=== PATIENT | female | born 1995 | race Caucasian/White ===

== ENCOUNTER 2017-08-12 10:12 | Emergency (ER) | payer SELFPAY ==
[2017-08-12] MEDS ORDERED: Sodium Chloride 0.9% 1,000 ML IV ONE (10:27)
--- NOTE | 2017-08-12 10:30 | EDM.PDOC ---
ED HPI GENERAL MEDICAL PROBLEM - General Chief Complaint: Genitourinary Problem Stated Complaint: BLOODY URINE 11 WKS Time Seen by Provider: 08/12/17 10:18 Source of Information: Reports: Patient History Limitations: Reports: No Limitations - History of Present Illness INITIAL COMMENTS - FREE TEXT/NARRATIVE: HISTORY AND PHYSICAL: History of present illness: Patient is a 22-year-old female who presents to the emergency room with complaints of headache, blurred vision, bilateral flank pain and hematuria. She states that she is concerned she may have a kidney infection or kidney stone. States she took Tylenol last night and again this morning for her headache which she reports helped "somewhat". She does occasionally get headaches but has no history of migraines. She is currently 11 weeks with last menstrual period being May. She denies any abdominal cramping, vaginal bleeding or discharge. Denies any fever, chills, abdominal pain, n/v/d, chest pain, or SOB. , P: 0. She has a primary [employer] in [facility], which she sees routinely. She has had lab work and a confirmed IUP via ultrasound. Review of systems: As per history of present illness and below otherwise all systems reviewed and negative. Past medical history: As per history of present illness and as reviewed below otherwise noncontributory. Surgical history: As per history of present illness and as reviewed below otherwise noncontributory. Social history: No reported history of drug or alcohol abuse. Family history: As per history of present illness and as reviewed below otherwise noncontributory. Physical exam: General: Well-developed and well-nourished 22-year-old female. Alert and oriented. Nontoxic appearing and in no acute distress. HEENT: Atraumatic, normocephalic, pupils reactive, negative for conjunctival pallor or scleral icterus, mucous membranes moist, throat clear, neck supple, nontender, trachea midline. Lungs: Clear to auscultation, breath sounds equal bilaterally, chest nontender. Heart: S1S2, regular rate and rhythm without murmur Abdomen: Soft, nondistended, nontender. Negative for masses or hepatosplenomegaly. Mild bilateral costovertebral tenderness. Pelvis: Stable nontender. Genitourinary: Deferred. Rectal: Deferred. Extremities: Atraumatic, moves all extremities per self, negative for cords or calf pain. Neurovascular unremarkable. Neuro: Awake, alert, oriented. Cranial nerves II through XII unremarkable. Cerebellum unremarkable. Motor and sensory unremarkable throughout. Exam nonfocal. Patient is concerned that she may have kidney stones as she reports her mother has had kidney stones in the past. She is agreeable to doing routine lab work at this time. She does not have any concerns such as cramping, bleeding or discharge. CBC, CMP are normal. Urinalysis does show a UTI. I will add a urine culture onto this. Prescription for Macrobid 100 mg twice a day 10 days. we discussed increasing her oral fluids. Using Tylenol as needed for her headache and flank discomfort. She does have a close relationship with her primary care/[employer] which she has routine follow-up with. Encouraged her to return to the ER if symptoms worsen. Diagnostics: CBC, CMP, UA Therapeutics: IV fluid Impression: #1 First trimester #2 UTI #3 Headache Plan: 1. Please take the antibiotic as directed. A urine culture has been added to make sure the antibiotic you've been placed on is appropriate. 2. Increase your oral fluids. May use Tylenol as needed for pain management. Gentle heat for comfort. 3. Please follow closely with your [employer] (inform them of your visit here today) . Return to the ED as needed and as discussed. Definitive disposition and diagnosis as appropriate pending reevaluation and review of above. Duration: Day(s): Location: Reports: Back Quality: Reports: Ache mid back Pain Score (Numeric/FACES): 5 - Related Data Allergies Allergy/AdvReac Type Severity Reaction Status Date / Time Penicillins Allergy Hives Verified 08/12/17 10:22 Home Meds: Home Meds . [No Known Home Meds] 08/12/17 [History] Past Medical History - Past Health History Medical/Surgical History: Denies Medical/Surgical History - Infectious Disease History Infectious Disease History: Reports: Chicken Pox Social & Family History - Family History Family Medical History: Noncontributory - Tobacco Use Smoking Status *Q: Never Smoker - Caffeine Use Caffeine Use: Reports: None - Recreational Drug Use Recreational Drug Use: No ED ROS GENERAL - Review of Systems Review Of Systems: ROS reveals no pertinent complaints other than HPI. ED EXAM, RENAL/ - Physical Exam Exam: See Below (See dictation) Course - Vital Signs Last Recorded V/S: Last Vital Signs Temp 97.6 F 08/12/17 10:22 Pulse 94 08/12/17 10:22 Resp 18 08/12/17 10:22 BP 130/77 08/12/17 10:22 Pulse Ox 99 08/12/17 10:22 - Orders/Labs/Meds Orders: Active Orders 24 hr Category Date Time Status CULTURE URINE [RM] Stat Lab 08/12/17 10:26 Received Sodium Chloride 0.9% [Normal Saline] 1,000 ml Med 08/12/17 10:27 Active IV STAT Medication Orders Sodium Chloride (Normal Saline) 1,000 mls @ 999 mls/hr IV STAT ONE Stop: 08/12/17 11:27 Last Admin: 08/12/17 10:40 Dose: 999 mls/hr Labs: Laboratory Tests 08/12/17 08/12/17 08/12/17 Range/Units 10:26 10:45 10:45 WBC 9.98 (4.0-11.0) K/uL RBC 4.71 (4.30-5.90) M/uL Hgb 13.9 (12.0-16.0) g/dL Hct 41.4 (36.0-46.0) % MCV 87.9 (80.0-98.0) fL MCH 29.5 (27.0-32.0) pg MCHC 33.6 (31.0-37.0) g/dL RDW Std Deviation 42.9 (28.0-62.0) fl RDW Coeff of Adiel 13 (11.0-15.0) % Plt Count 249 (150-400) K/uL MPV 9.60 (7.40-12.00) fL Nucleated RBC % 0.0 /100WBC Nucleated RBCs # 0 K/uL Sodium 134 L (136-146) mmol/L Potassium 3.6 (3.5-5.1) mmol/L Chloride 104 (98-110) mmol/L Carbon Dioxide 21 (21-31) mmol/L BUN 9 (6.0-23.0) mg/dL Creatinine 0.7 (0.6-1.5) mg/dL Est Cr Clr Drug Dosing 118.01 mL/min Estimated GFR (MDRD) > 60.0 ml/min Glucose 78 (60-110) mg/dL Calcium 9.6 (8.8-10.8) mg/dL Total Bilirubin 0.4 (0.1-1.5) mg/dL AST 14 (5-40) IU/L ALT 10 (8-54) IU/L Alkaline Phosphatase 35 L (40-150) Total Protein 7.6 (6.0-8.0) g/dL Albumin 4.4 (3.5-5.0) g/dL Globulin 3.2 (2.0-3.5) g/dL Albumin/Globulin Ratio 1.4 (1.3-2.8) Urine Color YELLOW Urine Appearance CLOUDY Urine pH 6.0 (5.0-8.0) Ur Specific [place] 1.015 (1.001-1.035) Urine Protein TRACE (NEGATIVE) mg/dL Urine Glucose (UA) NEGATIVE (NEGATIVE) mg/dL Urine Ketones 15 H (NEGATIVE) mg/dL Urine Occult Blood LARGE H (NEGATIVE) Urine Nitrite NEGATIVE (NEGATIVE) Urine Bilirubin NEGATIVE (NEGATIVE) Urine Urobilinogen 1.0 (<2.0) EU/dL Ur Leukocyte Esterase LARGE (NEGATIVE) Urine RBC 25-30 (0-2/HPF) Urine WBC TO NUMEROUS TO COUNT H (0-5/HPF) Ur Epithelial Cells FEW (NONE-FEW) Urine Bacteria FEW (NEGATIVE) Meds: Medications Generic Name Dose Route Start Last Admin Trade Name Freq PRN Reason Stop Dose Admin Sodium Chloride 1,000 mls @ 999 mls/hr 08/12/17 10:27 08/12/17 10:40 Normal Saline IV 08/12/17 11:27 999 mls/hr STAT ONE Administration Departure - Departure Time of Disposition: 11:27 Disposition: Home, Self-Care 01 Clinical Impression: UTI, Urinary tract infectious disease, First trimester - Discharge Information Referrals: PCP,None [Primary Care Provider] - Forms: ED Department Discharge Additional Instructions: My general discharge The following information is given to patients seen in the emergency department who are being discharged to home. This information is to outline your options for follow-up care. We provide all patients seen in our emergency department with a follow-up referral. The need for follow-up, as well as the timing and circumstances, are variable depending upon the specifics of your emergency department visit. If you don't have a primary care physician on staff, we will provide you with a referral. We always advise you to contact your personal physician following an emergency department visit to inform them of the circumstance of the visit and for follow-up with them and/or the need for any referrals to a consulting specialist. The emergency department will also refer you to a specialist when appropriate. This referral assures that you have the opportunity for follow-up care with a specialist. All of these measure are taken in an effort to provide you with optimal care, which includes your follow-up. Under all circumstances we always encourage you to contact your private physician who remains a resource for coordinating your care. When calling for follow-up care, please make the office aware that this follow-up is from your recent emergency room visit. If for any reason you are refused follow-up, please contact the [facility] Emergency Department at and asked to speak to the emergency department charge nurse. [address] [address] 1. Please take the antibiotic as directed. A urine culture has been added to make sure the antibiotic you've been placed on is appropriate. 2. Increase your oral fluids. May use Tylenol as needed for pain management. Gentle heat for comfort. 3. Please follow closely with your [employer] (inform them of your visit here today) . Return to the ED as needed and as discussed. - My Orders Last 24 Hours: My Active Orders 08/12/17 10:26 CULTURE URINE [RM] Stat 08/12/17 10:27 Sodium Chloride 0.9% [Normal Saline] 1,000 ml IV STAT - Assessment/Plan Last 24 Hours: My Active Orders 08/12/17 10:26 CULTURE URINE [RM] Stat 08/12/17 10:27 Sodium Chloride 0.9% [Normal Saline] 1,000 ml IV STAT
[2017-08-12 11:08] LABS: CHLORIDE,CL 104 mmol/L (98-110); SODIUM,NA 134 mmol/L (136-146)
== END 2017-08-12 11:55 | disposition home or self-care (01) ==
LOC: MW.ED 10:12
DX: O23.41 Unspecified infection of urinary tract in pregnancy, first trimester (principal); R51 Headache; Z88.0 Allergy status to penicillin; Z3A.11 11 weeks gestation of pregnancy
CPT/HCPCS: 36415; 80053; 81001; 85027; 87086; 96360; 99283; J7040

== ENCOUNTER 2019-12-08 10:03 | Day surgery (SDC) | payer BC ==
[2019-12-08] MEDS ORDERED: Bupivacaine 0.5% 10 ML SDV ONE (11:19)
[2019-12-08] MEDS ORDERED: Lidocaine 1% 20 ML MDV ONE (11:20)
--- NOTE | 2019-12-08 13:14 | PCM.OPNOTE ---
- General Post-Op/Procedure Note Date of Surgery/Procedure: 12/08/19 Operative Procedure(s): Excision left scalp lesion Findings: 1 cm in diameter raised irregular appearing nevus. Margins 1cm x 8mm x 5mm Pre Op Diagnosis: Changing skin lesion on left scalp Post-Op Diagnosis: same Anesthesia Technique: Local Primary Surgeon: Bethanie BAXTER in mLs: 2 Condition: Good
--- NOTE | 2019-12-08 16:34 | OR ---
SURGEON: BETHANIE TAYLOR MD DATE OF PROCEDURE: 12/08/2019 PREOPERATIVE DIAGNOSIS: Left scalp lesion. POSTOPERATIVE DIAGNOSIS: Left scalp lesion. PROCEDURE PERFORMED: Excision of left scalp lesion. PRIMARY SURGEON: Bethanie Taylor MD ANESTHESIA: Local. FLUIDS: None. ESTIMATED BLOOD LOSS: 2 mL. FINDINGS: 1 cm raised irregular appearing nevus. Margins 1 cm x 8 mm x 5 mm. COMPLICATIONS: None. INDICATIONS: The patient is a 24-year-old female who presents with a changing skin lesion along her left scalp line. The decision was made to proceed with excision in the operating room to control bleeding given the lesion's size and location. I explained the procedure, expected perioperative course, and risks. The patient verbalized understanding and wishes to proceed. PROCEDURE IN DETAIL: The patient was brought into the OR and placed on the OR cart in a right lateral decubitus position. A time-out was completed verifying the patient's name, age, date of , allergies, and procedure to be performed. The left scalp line just behind the ear was prepped and draped in usual sterile fashion. I first measured the skin lesion. It measured 1 cm in diameter and was raised approximately 5 mm. I anesthetized the area underneath the skin lesion with 3 mL of 1% lidocaine plain. An elliptical skin incision was made using a 15 blade around the skin lesion and along the skin lines. Cautery was then used to dissect down to the level of subcutaneous fat. I undermined the skin lesion, and once it was from the surrounding tissues, it was placed on the back table. The lesion and the skin that were taken with it measured 1 cm x 8 mm x 5 mm in size. Hemostasis was achieved in the wound using electrocautery. An interrupted 3-0 Vicryl suture was placed along the subcutaneous fat layer to provide a tension-free closure. Interrupted 3-0 Ethilon sutures were used to close the approximately 2 cm incision. Sterile dressings were applied. The patient tolerated the procedure well and was taken back to the preoperative area in stable condition. MELISSA LOPES /[id number]
== END 2019-12-08 13:30 | disposition home or self-care (01) ==
LOC: MW.SDS 10:03
PROVIDERS: ATTEND Surgery
DX: D22.4 Melanocytic nevi of scalp and neck (principal); Z88.0 Allergy status to penicillin
CPT/HCPCS: 11422; 12031; J2001; 88305; J3490

== ENCOUNTER 2021-08-17 05:01 | Emergency (ER) | payer SELFPAY | END 2021-08-17 05:29 | disposition home or self-care (01) | LOC: MW.ED 05:01 | DX: H74.8X3 Other specified disorders of middle ear and mastoid, bilateral (principal); Z88.0 Allergy status to penicillin | CPT/HCPCS: 99282 ==

== ENCOUNTER 2022-10-06 08:23 | Emergency (ER) | payer SELFPAY ==
[2022-10-06] MEDS ORDERED: Morphine 4 MG/ML Syringe IVPUSH ONE ×3 (08:47→11:07)
[2022-10-06] MEDS ORDERED: Ondansetron 4 MG/2 ML SDV IVPUSH ONE (08:47)
[2022-10-06] MEDS ORDERED: Lactated Ringers 1,000 ML IV SCH (09:00)
[2022-10-06 09:34] LABS: CARBON DIOXIDE,CO2 24.7 mmol/L (21.0-32.0); POTASSIUM,K 3.7 mmol/L (3.5-5.1)
[2022-10-06] MEDS ORDERED: metroNIDAZOLE/Normal Saline 500 MG in Premix Bag 1 BAG IV ONE (09:45)
[2022-10-06] MEDS ORDERED: Doxycycline 100 MG in Sodium Chloride 0.9% 100 ML IV SCH (09:45)
[2022-10-06] MEDS ORDERED: fentaNYL 50 MCG/ML SDV IVPUSH ONE (11:20)
[2022-10-06] MEDS ORDERED: Sodium Chloride 0.9% 1,000 ML IV ONE (12:17)
== END 2022-10-06 13:47 | disposition home or self-care (01) ==
LOC: MW.ED 08:23
DX: O02.1 Missed abortion (principal); Z90.49 Acquired absence of other specified parts of digestive tract; Z86.16 Personal history of COVID-19
CPT/HCPCS: 36415; 76830; 80053; 81001; 83605; 85014; 85018; 85025; 85610; 85730; 86850; 86900; 86901; 87040; 87086; 96361; 96365; 96367; 96375; 96376; 99285; J2270; J2405; J3010; J3490; J7030; J7050; J7120